=== PATIENT | female | born 2005 | race Caucasian/White ===

== ENCOUNTER 2024-09-09 16:15 | Inpatient (IN) ==
[2024-09-09] MEDS: ONDANSETRON INJ 2 MG/ML 2 ML VIAL IV STA (17:09)
[2024-09-09] MEDS: ACTIVATED CHARCOAL/SORBITOL 25 GM/120 ML TUBE PO STA (17:09)
--- NOTE | 2024-09-09 17:41 | Emergency Department Note ---
History of Present Illness General Chief complaint: Overdose (Intentional) Stated complaint: OD Time Seen by Provider: 09/09/24 16:22 History of Present Illness Provider complaint: Overdose 19-year-old female with history of anxiety and depression presents emergency department for acute overdose. Patient states she was having thoughts of wanting kill herself and tried to kill her self today by ingestion 30 tablets of 100 mg Zoloft, 10 tablets of 500 mg Tylenol, and 40 tablets of Midol. Patient states she also tried to cut her wrist. Home Medications Medication Instructions Recorded Confirmed Type drospirenone 3 mg-ethinyl 1 tab PO DAILY 09/09/24 09/09/24 History estradiol 0.03 mg tablet sertraline 100 mg tablet (Zoloft) 100 mg PO DAILY 09/09/24 09/09/24 History Allergies Allergy/AdvReac Type Severity Reaction Status Date / Time No Known Allergies Allergy Unverified 09/09/24 22:54 Past Med/Surg History Problem List (Updated 09/09/24 @ 23:04 by Jayesh Palma MD) Suicide attempt by multiple drug overdose (Acute) Medical History No pertinent family history Anxiety Depression Surgical History No pertinent past surgical history Social History Smoking Status: Never smoker Preferred Language: Thai Feels Safe at Home: Yes Gender Identity: Female Physical Exam Vital Signs Vital Signs - 24 hr 09/09/24 16:30 09/09/24 16:30 09/09/24 16:30 Temperature Temperature Source Pulse Rate Pulse Rate [Apical] Pulse Rate from SpO2 Sensor Pulse Rhythm [Apical] Pulse Strength [Apical] Respiratory Rate Respiratory Effort / Characteristics Respiratory Depth Respiratory Pattern Blood Pressure 138/82 138/82 138/82 Blood Pressure [Left Arm] Blood Pressure Mean 101 101 101 Blood Pressure Mean [Left Arm] Blood Pressure Position Blood Pressure Position [Left Arm] Pulse Oximetry Oxygen Delivery Method Sepsis Recent Fever Within 48 Hours Sepsis New/Unexplained Change in Mental Status Sepsis Action Taken by Nursing 09/09/24 16:30 09/09/24 16:31 09/09/24 16:35 Temperature 37.0 C Temperature Source Oral Pulse Rate 96 H 99 H 102 H Pulse Rate [Apical] Pulse Rate from SpO2 Sensor 98 H Pulse Rhythm [Apical] Pulse Strength [Apical] Respiratory Rate 15 13 Respiratory Effort / Characteristics Non-Labored Spontaneous Respiratory Depth Normal Respiratory Pattern Regular Blood Pressure 138/82 Blood Pressure [Left Arm] Blood Pressure Mean 100 Blood Pressure Mean [Left Arm] Blood Pressure Position Semi-fowlers Blood Pressure Position [Left Arm] Pulse Oximetry 97 98 Oxygen Delivery Method Room Air Sepsis Recent Fever Within 48 Hours No Sepsis New/Unexplained Change in Mental Status No Sepsis Action Taken by Nursing No Action Required 09/09/24 16:45 09/09/24 16:45 09/09/24 16:57 Temperature Temperature Source Pulse Rate 112 H 106 H Pulse Rate [Apical] Pulse Rate from SpO2 Sensor Pulse Rhythm [Apical] Pulse Strength [Apical] Respiratory Rate 21 23 Respiratory Effort / Characteristics Respiratory Depth Respiratory Pattern Blood Pressure 131/87 Blood Pressure [Left Arm] Blood Pressure Mean 99 Blood Pressure Mean [Left Arm] Blood Pressure Position Blood Pressure Position [Left Arm] Pulse Oximetry Oxygen Delivery Method Sepsis Recent Fever Within 48 Hours Sepsis New/Unexplained Change in Mental Status Sepsis Action Taken by Nursing 09/09/24 17:00 09/09/24 17:03 09/09/24 17:12 Temperature Temperature Source Pulse Rate 89 86 Pulse Rate [Apical] Pulse Rate from SpO2 Sensor Pulse Rhythm [Apical] Pulse Strength [Apical] Respiratory Rate 15 14 Respiratory Effort / Characteristics Respiratory Depth Respiratory Pattern Blood Pressure 135/79 Blood Pressure [Left Arm] Blood Pressure Mean 94 Blood Pressure Mean [Left Arm] Blood Pressure Position Blood Pressure Position [Left Arm] Pulse Oximetry Oxygen Delivery Method Sepsis Recent Fever Within 48 Hours Sepsis New/Unexplained Change in Mental Status Sepsis Action Taken by Nursing 09/09/24 17:15 09/09/24 17:24 09/09/24 17:36 Temperature Temperature Source Pulse Rate 83 98 H Pulse Rate [Apical] Pulse Rate from SpO2 Sensor Pulse Rhythm [Apical] Pulse Strength [Apical] Respiratory Rate 16 20 Respiratory Effort / Characteristics Respiratory Depth Respiratory Pattern Blood Pressure 134/75 Blood Pressure [Left Arm] Blood Pressure Mean 85 Blood Pressure Mean [Left Arm] Blood Pressure Position Blood Pressure Position [Left Arm] Pulse Oximetry Oxygen Delivery Method Sepsis Recent Fever Within 48 Hours Sepsis New/Unexplained Change in Mental Status Sepsis Action Taken by Nursing 09/09/24 17:42 09/09/24 17:45 09/09/24 17:45 Temperature Temperature Source Pulse Rate 108 H 101 H Pulse Rate [Apical] Pulse Rate from SpO2 Sensor Pulse Rhythm [Apical] Pulse Strength [Apical] Respiratory Rate 13 Respiratory Effort / Characteristics Respiratory Depth Respiratory Pattern Blood Pressure 142/82 H Blood Pressure [Left Arm] Blood Pressure Mean 93 Blood Pressure Mean [Left Arm] Blood Pressure Position Blood Pressure Position [Left Arm] Pulse Oximetry Oxygen Delivery Method Sepsis Recent Fever Within 48 Hours Sepsis New/Unexplained Change in Mental Status Sepsis Action Taken by Nursing 09/09/24 17:45 09/09/24 18:00 09/09/24 18:00 Temperature Temperature Source Pulse Rate Pulse Rate [Apical] Pulse Rate from SpO2 Sensor Pulse Rhythm [Apical] Pulse Strength [Apical] Respiratory Rate Respiratory Effort / Characteristics Respiratory Depth Respiratory Pattern Blood Pressure 142/82 H 119/90 119/90 Blood Pressure [Left Arm] Blood Pressure Mean 93 101 101 Blood Pressure Mean [Left Arm] Blood Pressure Position Blood Pressure Position [Left Arm] Pulse Oximetry Oxygen Delivery Method Sepsis Recent Fever Within 48 Hours Sepsis New/Unexplained Change in Mental Status Sepsis Action Taken by Nursing 09/09/24 18:00 09/09/24 18:02 09/09/24 18:09 Temperature Temperature Source Pulse Rate 103 H 118 H Pulse Rate [Apical] 110 H Pulse Rate from SpO2 Sensor Pulse Rhythm [Apical] Pulse Strength [Apical] Respiratory Rate 21 16 20 Respiratory Effort / Characteristics Respiratory Depth Respiratory Pattern Blood Pressure Blood Pressure [Left Arm] 117/82 Blood Pressure Mean Blood Pressure Mean [Left Arm] 93 Blood Pressure Position Blood Pressure Position [Left Arm] Pulse Oximetry 98 Oxygen Delivery Method Room Air Sepsis Recent Fever Within 48 Hours Sepsis New/Unexplained Change in Mental Status Sepsis Action Taken by Nursing 09/09/24 18:15 09/09/24 18:30 09/09/24 18:30 Temperature Temperature Source Pulse Rate Pulse Rate [Apical] Pulse Rate from SpO2 Sensor Pulse Rhythm [Apical] Pulse Strength [Apical] Respiratory Rate Respiratory Effort / Characteristics Respiratory Depth Respiratory Pattern Blood Pressure 139/82 117/82 117/82 Blood Pressure [Left Arm] Blood Pressure Mean 92 93 93 Blood Pressure Mean [Left Arm] Blood Pressure Position Blood Pressure Position [Left Arm] Pulse Oximetry Oxygen Delivery Method Sepsis Recent Fever Within 48 Hours Sepsis New/Unexplained Change in Mental Status Sepsis Action Taken by Nursing 09/09/24 18:30 09/09/24 18:30 09/09/24 18:30 Temperature Temperature Source Pulse Rate 111 H Pulse Rate [Apical] Pulse Rate from SpO2 Sensor Pulse Rhythm [Apical] Pulse Strength [Apical] Respiratory Rate 18 Respiratory Effort / Characteristics Respiratory Depth Respiratory Pattern Blood Pressure 117/82 117/82 Blood Pressure [Left Arm] Blood Pressure Mean 93 93 Blood Pressure Mean [Left Arm] Blood Pressure Position Blood Pressure Position [Left Arm] Pulse Oximetry Oxygen Delivery Method Sepsis Recent Fever Within 48 Hours Sepsis New/Unexplained Change in Mental Status Sepsis Action Taken by Nursing 09/09/24 18:45 09/09/24 19:00 09/09/24 19:15 Temperature Temperature Source Pulse Rate 118 H 110 H 118 H Pulse Rate [Apical] Pulse Rate from SpO2 Sensor 116 H 106 H 115 H Pulse Rhythm [Apical] Pulse Strength [Apical] Respiratory Rate 22 19 19 Respiratory Effort / Characteristics Respiratory Depth Respiratory Pattern Blood Pressure 116/85 124/90 123/73 Blood Pressure [Left Arm] Blood Pressure Mean 97 99 89 Blood Pressure Mean [Left Arm] Blood Pressure Position Blood Pressure Position [Left Arm] Pulse Oximetry 96 96 95 Oxygen Delivery Method Room Air Room Air Room Air Sepsis Recent Fever Within 48 Hours Sepsis New/Unexplained Change in Mental Status Sepsis Action Taken by Nursing 09/09/24 20:00 09/09/24 20:33 09/09/24 22:00 Temperature Temperature Source Pulse Rate 113 H Pulse Rate [Apical] 110 H 107 H Pulse Rate from SpO2 Sensor Pulse Rhythm [Apical] Regular Regular Pulse Strength [Apical] Normal Normal Respiratory Rate 20 20 Respiratory Effort / Characteristics Non-Labored Spontaneous Non-Labored Spontaneous Respiratory Depth Normal Normal Respiratory Pattern Regular Regular Blood Pressure Blood Pressure [Left Arm] 143/94 H 161/101 H Blood Pressure Mean Blood Pressure Mean [Left Arm] 110 121 Blood Pressure Position Blood Pressure Position [Left Arm] Lying Pulse Oximetry 98 97 Oxygen Delivery Method Room Air Room Air Sepsis Recent Fever Within 48 Hours Sepsis New/Unexplained Change in Mental Status Sepsis Action Taken by Nursing Physical Exam GENERAL: Patient is crying and appears upset. HENT: Exam performed. - Head: Normocephalic and atraumatic. EYES: Conjunctivae and EOM are normal. Right eye exhibits no discharge. Left eye exhibits no discharge. No scleral icterus. NECK: Normal range of motion. Neck supple. No JVD present. CV: Normal rate, regular rhythm, normal heart sounds and intact distal pulses. There is no peripheral edema. Palpable radial pulses bue. PULM/CHEST: Effort normal and breath sounds normal. No respiratory distress. No stridor. no wheezes. no rales. ABD: The abdomen is soft. There is no tenderness. NEURO: Motor and sensation grossly intact. SKIN: Abrasions to the left wrist. No active bleeding. PSYCH: Patient is crying and appears upset. Suicidal ideation. Course Course 1622: The patient was evaluated in room A6. A complete history and physical exam was performed Cardiac monitoring: An order was placed for continuous cardiac monitoring. The monitor shows a rate of 90 with sinus rhythm interpreted by me 1653: Spoke with [facility]. Both she and I are okay with waiting until 4-hour after ingestion to check labs. She did recommend activated charcoal with sorbitol. 2115: Vital signs stable. Labs show a serum Tylenol level of 58. Discussed with poison control no need for NAC. Patient medically cleared from toxicology standpoint. Patient will be assessed by mental health manager case for inpatient psychiatric admission. 2304: Patient accepted to 3 S. Administered Medications Discontinued Medications Charcoal/Sorbitol (Activated Charcoal/Sorbitol 25 Gm/120 Ml Tube) 50 gm PO NOW STA Stop: 09/09/24 16:56 Last Admin: 09/09/24 17:09 Dose: 50 gm Documented By: JASMEET Ondansetron HCl (Ondansetron Inj 2 Mg/Ml 2 Ml Vial) 4 mg IV NOW STA Stop: 09/09/24 17:04 Last Admin: 09/09/24 17:09 Dose: 4 mg Documented By: JASMEET Medical Decision Making Laboratory Data Attestation: I reviewed the patient's lab results. 09/09/24 19:30 09/09/24 19:30 Lab Results 09/09/24 09/09/24 09/09/24 Range/Units 16:21 19:30 Unknown WBC 6.48 (4.8-10.8) K/ul RBC 4.61 (4.20-5.40) M/uL Hgb 13.5 (12.0-16.0) g/dl Hct 40.4 (37.0-47.0) % MCV 87.6 (80.0-100.0) fL MCH 29.3 (25.0-34.0) pg MCHC 33.4 (32.0-36.0) g/dL RDW Std Deviation 42.3 (36.4-46.3) fL RDW Coeff of Davey 13.2 (11.5-14.5) % Plt Count 244 (130-400) K/uL MPV 10.2 (9.4-12.4) fL Immature Gran % (Auto) 0.3 % Neut % (Auto) 70.2 % Lymph % (Auto) 22.4 % [place] % (Auto) 6.0 % Eos % (Auto) 0.2 % Baso % (Auto) 0.9 % Neut # (Auto) 4.55 (1.40-6.50) K/uL Lymph # (Auto) 1.45 (1.20-3.40) K/uL [place] # (Auto) 0.39 (0.11-0.59) K/uL Eos # (Auto) 0.01 (0.00-0.50) K/uL Baso # (Auto) 0.06 (0.00-0.20) K/uL Immature Gran # (Auto) 0.02 (0.01-0.20) K/uL Sodium 139 (136-145) mmol/L Potassium 3.9 (3.5-5.1) mmol/L Chloride 107 (98-107) mmol/L Carbon Dioxide 21 (21-32) mmol/L Anion Gap 11 (3-11) BUN 15 (6-23) mg/dl Creatinine 0.72 (0.6-1.2) mg/dl Est Cr Clr Drug Dosing 137.0 ml/min eGFR 121.92 BUN/Creatinine Ratio 20.8 H (10-20) Glucose 100 H (70-99(Fasting)) mg/dl Calcium 9.3 (8.6-10.3) mg/dl Total Bilirubin 0.3 (0.2-1.0) mg/dl AST 15 (13-39) U/L ALT 14 (7-52) U/L Alkaline Phosphatase 46 (34-104) U/L Total Protein 7.9 (6.0-8.3) gm/dl Albumin 4.4 (3.4-5.0) gm/dl Globulin 3.5 (2.5-4.0) gm/dl Albumin/Globulin Ratio 1.3 (0.9-2) TSH 0.728 (0.300-4.500) uIu/ml HCG, Qual Negative (Negative) Urine Color Yellow Urine Appearance Clear (Clear) Urine pH 7.5 (4.5-7.5) Ur Specific [place] 1.023 (1.000-1.030) Urine Protein Negative (Negative) Urine Glucose (UA) Negative (Negative) Urine Ketones Negative (Negative) Urine Blood Negative (Negative) Urine Nitrite Negative (Negative) Urine Bilirubin Negative (Negative) Urine Urobilinogen Negative (Negative) Ur Leukocyte Esterase Negative (Negative) Salicylates < 3.0 L (3.0-30) mg/dl Urine Opiates Screen Neg (Neg) Ur Methadone, Qual Neg (Neg) Urine Fentanyl Screen Neg (Neg) Acetaminophen 58 H (10-30) ug/ml Urine Barbiturates Neg (Neg) Ur Phencyclidine (PCP) Neg (Neg) U Amphetamin/Meth Scrn Neg (Neg) MDMA (Ecstasy) Screen Neg (Neg) U Benzodiazepines Scrn Neg (Neg) Ur Cocaine Metabolite Neg (Neg) U Marijuana (THC) Screen Pos H (Neg) Ethyl Alcohol mg/dL < 10.0 (<10.0) mg/dl SARS-CoV-2, RNA, NAAT NEGATIVE (NEGATIVE) ECG Data Attestation: I personally reviewed and interpreted this ECG as follows: Rate (beats per minute): 91 Rhythm: + normal sinus ECG Intervals/blocks: + Normal QRS, + Normal OK and + Normal QT-c ECG ST segments: + Normal ST segments [facility] Narrative 1622: The patient was evaluated in room A6. A complete history and physical exam was performed Cardiac monitoring: An order was placed for continuous cardiac monitoring. The monitor shows a rate of 90 with sinus rhythm interpreted by me 1653: Spoke with [facility]. Both she and I are okay with waiting until 4-hour after ingestion to check labs. She did recommend activated charcoal with sorbitol. 2115: Vital signs stable. Labs show a serum Tylenol level of 58. Discussed with poison control no need for NAC. Patient medically cleared from toxicology standpoint. Patient will be assessed by mental health manager case for inpatient psychiatric admission. 2304: Patient accepted to 3 S. Impression & Plan Suicide attempt by multiple drug overdose Discharge Plan Visit Data Chief Complaint: Overdose (Intentional) Stated Complaint: OD ED Provider: Jayesh Palma Discharge Problem: Suicide attempt by multiple drug overdose Patient Disposition: Admitted As Inpatient Forms Stand Alone Forms: My [facility], Suicide Prevention Resources Prescriptions Prescriptions: No Action sertraline [Zoloft] 100 mg tablet 100 mg PO DAILY drospirenone-ethinyl estradiol 3-0.03 mg tablet 1 tab PO DAILY Referrals Referrals: PCP,NO [Primary Care Provider] -
[2024-09-09 19:46] LABS: Appearance Urine Clear (Clear); Bilirubin Urine Negative (Negative); Blood Urine Negative (Negative); Color Urine Yellow; Glucose Urine UA Negative (Negative); Ketones Urine Negative (Negative); Leukocyte Esterase Urine Negative (Negative); Nitrite Urine Negative (Negative); Protein Urine Negative (Negative); Specific Gravity Urine 1.023 (1.000-1.030); Urobilinogen Urine Negative (Negative); pH Urine 7.5 (4.5-7.5)
[2024-09-09 20:01] LABS: Basophils # (auto) 0.06 K/uL (0.00-0.20); Basophils % (auto) 0.9 %; Eosinophils # (auto) 0.01 K/uL (0.00-0.50); Eosinophils % (auto) 0.2 %; Hematocrit (blood only) 40.4 % (37.0-47.0); Hemoglobin 13.5 g/dl (12.0-16.0); Immature Granulocytes # (auto) 0.02 K/uL (0.01-0.20); Immature Granulocytes % (auto) 0.3 %; Lymphocytes # (auto) 1.45 K/uL (1.20-3.40); Lymphocytes % (auto) 22.4 %; Mean Corpuscular Hemoglobin 29.3 pg (25.0-34.0); Mean Corpuscular Hgb Conc 33.4 g/dL (32.0-36.0); Mean Corpuscular Volume 87.6 fL (80.0-100.0); Mean Platelet Volume 10.2 fL (9.4-12.4); Monocytes # (auto) 0.39 K/uL (0.11-0.59); Neutrophils # (auto) 4.55 K/uL (1.40-6.50); Neutrophils % (auto) 70.2 %; Platelet Count 244 K/uL (130-400); RDW Coefficient of Variation 13.2 % (11.5-14.5); RDW Standard Deviation 42.3 fL (36.4-46.3); Red Blood Count 4.61 M/uL (4.20-5.40); White Blood Count 6.48 K/ul (4.8-10.8)
[2024-09-09 20:13] LABS: Albumin Globulin Ratio 1.3 (0.9-2); Albumin Level 4.4 gm/dl (3.4-5.0); BUN Creatinine Ratio 20.8 (10-20); Bilirubin,Total 0.3 mg/dl (0.2-1.0); Calcium 9.3 mg/dl (8.6-10.3); Globulin 3.5 gm/dl (2.5-4.0); Potassium 3.9 mmol/L (3.5-5.1); Total Protein 7.9 gm/dl (6.0-8.3)
[2024-09-09 20:28] LABS: Thyroid Stimulating Hormone 0.728 uIu/ml (0.300-4.500)
[2024-09-09 20:53] LABS: Amphetamines+Metham, Urine Neg (Neg); Barbiturates, Urine Neg (Neg); Benzodiazepine, Urine Neg (Neg); Cocaine, Urine Neg (Neg); Fentanyl, Urine Neg (Neg); MDMA (Ecstacy), Urine Neg (Neg); Marijuana, Urine Pos (Neg); Methadone, Urine Neg (Neg); Opiate, Urine Neg (Neg); Phencyclidine, Urine Neg (Neg)
[2024-09-09 21:09] LABS: Pregnancy Test, Serum Negative (Negative)
[2024-09-09 21:11] LABS: Acetaminophen 58 ug/ml (10-30); Salicylate < 3.0 mg/dl (3.0-30)
[2024-09-09] MEDS ORDERED: SODIUM CHLORIDE 0.65% NA SOLN 45 ML (OCEAN) PRN (23:42)
[2024-09-09] MEDS ORDERED: BISMUTH SUBSALICYLATE 262 MG CHEW PO PRN (23:42)
[2024-09-09] MEDS ORDERED: MAGNESIUM HYDROXIDE SUSP 30 ML UDC PO PRN (23:42)
[2024-09-09] MEDS ORDERED: ALUMINUM/MAGNESIUM SUSP 30 ML UDC PO PRN (23:42)
--- NOTE | 2024-09-10 08:03 | History & Physical ---
Date of Service September 10, 2024 Impression / Recommendations Impression DIONNE UMANZOR is a 19-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 Diagnostically consistent with unspecified depression with differential including MDD vs BPD as well as likely JONO and possible cluster B and/or C traits. Discussed medication treatment options but will avoid starting anything today or tonight due to significant overdose of sertraline and to lessen risk for QTc changes. Overall I spent a total of 75 minutes for this admission including review of chart records, review of labwork, direct evaluation of the patient, counseling the patient, ordering medication, risk assessment, discussion with the psychiatric liason RN and documentation in the electronic health record. (1) Suicide attempt by multiple drug overdose: (2) Depression with suicidal ideation: (3) Social anxiety disorder: (4) JONO (generalized anxiety disorder): Plan 09/10/2024: The patient was admitted to the [facility] ([facility] mental health unit) on q15 min checks (behavioral with suicide precautions) for safety. The patient will participate in group, recreational, and milieu therapies and will be offered additional individual and family sessions as clinically appropriate. -Hold off on psychiatric medications for at least one more day given recent overdose -Vira BPD screen -Consider IOP for CBT/DBT skills after discharge Inventory Assets Strengths: supportive relationships, willing to get treatment Needs: safety and stabilization, medication adjustment, additional coping skills, increased outpatient services Suicide Risk Level Suicide Risk Level: High-Moderate (q15 min suicide checks) (s/p two recent suicide attempts, ongoing depression, but feels safe in the hospital and feels able to ask for support ) Risk Factors Assessment Male: No : Yes Do You Have Access To A Gun?: No Health Problems: No Mental Health Diagnoses: Yes Substance Use Disorders: No Previous Attempt: Yes Family History of Suicide: No Previous Psychiatric Hospitalization: No Hopelessness: Yes Protective Factors Assessment 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 Chief Complaint "I've been struggling for awhile now". 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 She's been struggling for the last few months but notes in the last week "it all came crashing down on me". She had no motivation, stopped going to classes in the last few days and "it was pretty impulsive and I didn't want to be here anymore". She identifies a lot of self-induced perfectionistic and pressure to do well academically so she can take care of her family and to prove her self- worth. She notes that it feels like if she's not high achieving academically then she has no self worth. When she struggles academically she then feels like her classmates and professions "must hate me" and notes that she's trying to set boundaries and take care of herself. Thinks recently she was not able to feel "these feelings" and "it kind of just all bubbled over". Feels she was driven to the point of suicide because has been feeling like "I'll never be good enough". She endorses depressive symptoms including social isolation (not talking to friends), decreased motivation (not able to go to class), helplessness (sometimes feels like "this is just the way I am, I'm bound for bad things coming my way"), hopelessness (some), decreased energy, stable appetite, and stable sleep. SI has been occurring for the last week. On 09/07/2024, she took 40 tabs of Ibuprofen, after researching for possible ways to by suicide in the few days prior. After taking it quickly called her friends who stayed with her until she felt better physically. After this she felt "a mix of being glad to be alive but also I don't know a mix of I still don't like where I'm at right now". Two days later on 09/09/2024 she then decided to take more pills around 3:30pm in the afternoon and she researched "what you need to take to overdose" and saw the midol and tylenol in the cabinet and thought mixing this with sertraline "will likely do something". After she took the medications she texted her mom and sister to tell them she loved them. Her sister called his ex- boyfriend to check on her and his father researched out to local police. Her ex- boyfriend then saw her with the pill bottles and called 911. Today she reports "I think I feel good about it" in terms of being alive. She notes she is thinking about going back to school but also scared that "things won't get better". She's glad "nothing worse happened" in thinking about her parents and friends. She also endorses symptoms of anxiety including "I'm just always anxious that e veryone hates me and self-image stuff and needing people to like me and then I get anxious about going to class". She is currently prescribed sertraline 150mg daily (has been on this for almost two years). Psychiatric ROS notable for no current nor history of symptoms of kalyn, psychosis, PTSD, OCD nor eating disorder. History of self-harm via cutting starting at age 11 but stopped in high school. Now will cut approximately once every few years. Did self-harm on 09/07/2024. Past Psychiatric History Previous Psych History: dx depression and anxiety around age [age] Current Psychiatric Diagnosis: Depression and anxiety Outpatient Services: -[facility] -therapy with Chinyere at [facility], recently switched to every other week Previous Psych Admissions: none Do You Have Access To A Gun?: No History of Previous Suicide Attempt: Yes (attempt on 09/07/2024 and 09/09/2024 via overdose) Past Medication Trials: none Past Head Trauma/Neuro History History of Concussion/Seizure: No Allergies Allergy/AdvReac Type Severity Reaction Status Date / Time No Known Allergies Allergy Unverified 09/09/24 22:54 Home Medications Medication Instructions Recorded Confirmed Type drospirenone 3 mg-ethinyl 1 tab PO DAILY 09/09/24 09/09/24 History estradiol 0.03 mg tablet sertraline 100 mg tablet (Zoloft) 150 mg PO DAILY 09/09/24 09/10/24 History Family History Family History of: Depression and Anxiety Family Mental Health History Comment: Mother (on zoloft), Sister Alcohol History Hx of Alcohol Use Over the Past 12 Months: Yes (every other weekend 3-4 drinks socially) AUDIT Total Score: 3 Smoking Use Have You Smoked or Used Tobacco Products in the Last 30 Days: No Smoking Status: Never smoker Substance History Hx of Prescription Med Misuse Over the Past 12 Months: No Hx of Over the Counter Med Misuse Over the Past 12 Months: No Hx of Inhalent Misuse Over the Past 12 Months: No Hx of Organic Substance Use Over the Past 12 Months: Yes (Recreational Marijuana) Hx of Illegal Substances/Street Drug Use Over Past 12 Months: No Problems as a Result of Past Substance Use: None Identified cannabis use maybe once a month while socializing Personal History Living Arrangements: Apartment Highest Grade Completed: College ([employer] major) Employment Status: Student Marital Status: Single Beliefs That Will Affect Care: None Current Legal Problems: No Hx Legal Problems: No Patient History Medical History No pertinent family history Anxiety Depression Surgical History No pertinent past surgical history Social History Smoking Status: Never smoker Preferred Language: Kuwaiti Communication Ability: Effective Inventory Control Clerk Required: No Beliefs That Will Affect Care: None Feels Safe at Home: Yes Gender Identity: Female Assistive Devices: None Review of Systems Review of Systems: All systems reviewed & are unremarkable except as noted in HPI & below Physical Exam Psychiatric: Orientation: alert and oriented x 3 Apperance: appropriately dressed and appropriately groomed Eye Contact: good eye contact Motor Behavior: no abnormal motor movements Speech: normal rate/rhythm/volume of speech Affect: + constricted affect Mood: + depressed mood and + anxious mood Thought Process: goal directed thought process Thought Content: reality based without delusions Suicidal Thoughts: denies suicidal thoughts (but s/p attempt), denies suicidal plan and denies suicidal intent Homicidal Thoughts: denies homicidal thoughts Hallucinations: no auditory hallucinations and no visual hallucinations Cognition: recent memory grossly intact, remote memory grossly intact, attention grossly intact and language grossly intact Estimated Intelligence: consistent with education level Insight: + fair insight Judgment: + limited judgement Vital Signs (Past 24 Hours): Last Vital Signs Temp 36.7 C 09/10/24 06:48 Pulse 86 09/10/24 06:48 Resp 16 09/10/24 06:48 BP 121/81 09/10/24 06:48 Pulse Ox 97 09/10/24 00:02 O2 Del Method Room Air 09/10/24 00:02 Exam Statement: A physical exam was performed in the ED by Dr. Palma for the purposes of medical clearance. I accept that physical as correct and adequate for the purposes of the inpatient physical exam. Results & Data ([facility]) Laboratory Results Laboratory Results - last 24 hr 09/09/24 09/09/24 09/09/24 16:21 19:30 Unknown WBC 6.48 RBC 4.61 Hgb 13.5 Hct 40.4 MCV 87.6 MCH 29.3 MCHC 33.4 RDW Std Deviation 42.3 RDW Coeff of Davey 13.2 Plt Count 244 MPV 10.2 Immature Gran % (Auto) 0.3 Neut % (Auto) 70.2 Lymph % (Auto) 22.4 [place] % (Auto) 6.0 Eos % (Auto) 0.2 Baso % (Auto) 0.9 Neut # (Auto) 4.55 Lymph # (Auto) 1.45 [place] # (Auto) 0.39 Eos # (Auto) 0.01 Baso # (Auto) 0.06 Immature Gran # (Auto) 0.02 Sodium 139 Potassium 3.9 Chloride 107 Carbon Dioxide 21 Anion Gap 11 BUN 15 Creatinine 0.72 Est Cr Clr Drug Dosing 137.0 eGFR 121.92 BUN/Creatinine Ratio 20.8 H Glucose 100 H Calcium 9.3 Total Bilirubin 0.3 AST 15 ALT 14 Alkaline Phosphatase 46 Total Protein 7.9 Albumin 4.4 Globulin 3.5 Albumin/Globulin Ratio 1.3 TSH 0.728 HCG, Qual Negative Urine Color Yellow Urine Appearance Clear Urine pH 7.5 Ur Specific [place] 1.023 Urine Protein Negative Urine Glucose (UA) Negative Urine Ketones Negative Urine Blood Negative Urine Nitrite Negative Urine Bilirubin Negative Urine Urobilinogen Negative Ur Leukocyte Esterase Negative Salicylates < 3.0 L Urine Opiates Screen Neg Ur Methadone, Qual Neg Urine Fentanyl Screen Neg Acetaminophen 58 H Urine Barbiturates Neg Ur Phencyclidine (PCP) Neg U Amphetamin/Meth Scrn Neg MDMA (Ecstasy) Screen Neg U Benzodiazepines Scrn Neg Ur Cocaine Metabolite Neg U Marijuana (THC) Screen Pos H U Marijuana THC Carboxy Pending Drug Screen Comment Pending Ethyl Alcohol mg/dL < 10.0 SARS-CoV-2, RNA, NAAT NEGATIVE Current Inpatient Medications Current Inpatient Medications: Current Inpatient Medications Al Hydrox/Mg Hydrox/Simethicone (Aluminum/Magnesium Susp 30 Ml Udc) 30 ml PO Q4H PRN PRN Reason: GI Upset Stop: 10/09/24 23:41 Bismuth Subsalicylate (Bismuth Subsalicylate 262 Mg Chew) 2 tab PO Q30M PRN PRN Reason: Loose Stool/Diarrhea Stop: 10/09/24 23:41 Magnesium Hydroxide (Magnesium Hydroxide Susp 30 Ml Udc) 30 ml PO DAILY PRN PRN Reason: Constipation Stop: 10/09/24 23:41 Sodium Chloride (Sodium Chloride 0.65% Na Soln 45 Ml (Sunol)) 1 - 2 sprays NA PRN PRN PRN Reason: Nasal Dryness/Congestion Stop: 10/09/24 23:41
--- NOTE | 2024-09-11 07:51 | Psychiatric Progress Note ---
Date of Service September 11, 2024 Impression / Recommendations Impression DIONNE UMANZOR is a 19-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 Diagnostically consistent with unspecified depression with differential including MDD vs BPD as well as likely JONO and possible cluster B and/or C traits. Discussed medication treatment options but will avoid starting anything today or tonight due to significant overdose of sertraline and to lessen risk for QTc changes. Overall I spent a total of 40 minutes for this admission including review of chart records, review of labwork, direct evaluation of the patient, counseling the patient, ordering medication, risk assessment, discussion with the psychiatric liason RN and documentation in the electronic health record. (1) Suicide attempt by multiple drug overdose: (2) Depression with suicidal ideation: (3) Social anxiety disorder: (4) JONO (generalized anxiety disorder): Plan 09/11/24: Reviewed medication options including trial of an increased dose of Zoloft (which she tolerated well without side effects), Wellbutrin (standalone or in combination with SSRI), SNRI. Encouraged coping mechanisms such as journaling, exercise, music and participation in unit activities. Continue current level of observation. 09/10/2024: The patient was admitted to the [facility] ([facility] mental health unit) on q15 min checks (behavioral with suicide precautions) for safety. The patient will participate in group, recreational, and milieu therapies and will be offered additional individual and family sessions as clinically appropriate. -Hold off on psychiatric medications for at least one more day given recent overdose -Vira BPD screen -Consider IOP for CBT/DBT skills after discharge Inventory Assets Strengths: supportive relationships, willing to get treatment Needs: safety and stabilization, medication adjustment, additional coping skills, increased outpatient services Suicide Risk Level Suicide Risk Level: High-Moderate (q15 min suicide checks) (s/p two recent suicide attempts, ongoing depression, but feels safe in the hospital and feels able to ask for support ) Risk Factors Assessment Male: No : Yes Do You Have Access To A Gun?: No Health Problems: No Mental Health Diagnoses: Yes Substance Use Disorders: No Previous Attempt: Yes Family History of Suicide: No Previous Psychiatric Hospitalization: No Hopelessness: Yes Protective Factors Assessment 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 Review of Systems Sleep Information Total Hours of Sleep: 6 Meal Information Percent Meal Consumed - Breakfast: 100 Percent Meal Consumed - Lunch: 100 Percent Meal Consumed - Dinner: 90 Subjective Subjective Patient was seen & assessed and interval progress reviewed with nursing and social work. 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 This was preceded by an overdose on 40 Ibuprofen 2 days prior. She endorses a history of depression and anxiety dating back to age 11. Anxiety is free floating and generalized. She [facility] and has been prescribed Zoloft 150mg daily along with alternative weekly therapy over the past year. She notes increasing difficulty keeping up with classes, has been late several times and not getting her assignments done since August. She also broke up with her boyfriend of 4 years as she felt a need to take care of herself. At this time she continues to endorse depressive symptoms, anxiety over missing class, and anxious ruminations about her siblings' detention financial security, which she feels responsible for. She denied suicidal ideation, intent or plan at this time. Denied physical symptoms at this time. Physical Exam Psychiatric Orientation: alert and oriented x 3 Apperance: appropriately dressed and appropriately groomed Eye Contact: good eye contact (tearful) Motor Behavior: no abnormal motor movements Speech: normal rate/rhythm/volume of speech Affect: + depressed affect, + anxious affect and + constricted affect Mood: + depressed mood and + anxious mood Thought Process: goal directed thought process Thought Content: reality based without delusions Suicidal Thoughts: denies suicidal thoughts (but s/p attempt), denies suicidal plan and denies suicidal intent Homicidal Thoughts: denies homicidal thoughts Hallucinations: no auditory hallucinations and no visual hallucinations Cognition: recent memory grossly intact, remote memory grossly intact, attention grossly intact and language grossly intact Estimated Intelligence: consistent with education level Insight: + fair insight Judgment: + limited judgement and + fair judgement Vital Signs (Past 24 Hours) Last Vital Signs Temp 36.4 C L 09/11/24 06:35 Pulse 102 H 09/11/24 06:36 Resp 16 09/11/24 06:35 BP 113/76 09/11/24 06:36 Pulse Ox 97 09/10/24 00:02 O2 Del Method Room Air 09/10/24 00:02 Results & Data ([facility]) Current Inpatient Medications Current Inpatient Medications: Current Inpatient Medications Al Hydrox/Mg Hydrox/Simethicone (Aluminum/Magnesium Susp 30 Ml Udc) 30 ml PO Q4H PRN PRN Reason: GI Upset Stop: 10/09/24 23:41 Bismuth Subsalicylate (Bismuth Subsalicylate 262 Mg Chew) 2 tab PO Q30M PRN PRN Reason: Loose Stool/Diarrhea Stop: 10/09/24 23:41 Magnesium Hydroxide (Magnesium Hydroxide Susp 30 Ml Udc) 30 ml PO DAILY PRN PRN Reason: Constipation Stop: 10/09/24 23:41 Miscellaneous (Drospirenone-Ethinyl Estradiol 3-0.03 Mg Tablet~Order Awaiting Action) 1 each N/A DAILY SVETLANA Stop: 10/11/24 08:59 Sodium Chloride (Sodium Chloride 0.65% Na Soln 45 Ml ([place]ayer)) 1 - 2 sprays NA PRN PRN PRN Reason: Nasal Dryness/Congestion Stop: 10/09/24 23:41 Mental Health & Subst Abuse Tx Psychiatrist Name of Psychiatrist: Breonna Li Psychiatrist's Date Of Appointment With Psychiatric Provider: 09/20/24 Time of Appointment with Psychiatrist: 14:20 Psychiatric Appointment Comment: Please arrive 15 minutes early for appointment Therapist Name of Therapist: Chinyere holcomb [facility] The[facility]'s Date of Therapist Appointment: 09/21/24 Time of Therapist Appointment: 9 AM Therapy Appointment Comment: Cancelled therapy appointment for 09/13/24 @ 9AM. Therapist Release of Information: Obtained Health Counselor Name of Health Counselor: n/a Post Discharge Appointments Primary Care Physician Name Of Family Doctor/PCP: No PCP (1) Suicide attempt by multiple drug overdose Encounter type: subsequent encounter Qualified Code(s): T50.912D - Poisoning by multiple unspecified drugs, medicaments and biological substances, intentional self-harm, subsequent encounter
[2024-09-11] MEDS: PATIENT'S OWN ORAL CONTRACEPTIVE PO SCH (21:31)
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
[2024-09-12] MEDS: SERTRALINE HCL 50 MG TABLET PO SCH (14:44)
[2024-09-12 15:26] LABS: Marijuana Quant, GCMS Urine 62 ng/mL (<5)
[2024-09-12] MEDS ORDERED: SERTRALINE HCL 50 MG TABLET PO SCH (22:00)
--- NOTE | 2024-09-13 11:27 | Psychiatric Progress Note ---
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 Diagnostically consistent with unspecified depression with differential including MDD vs BPD as well as likely JONO. Cluster B traits remain a consideration. Possibility of ADHD was discussed also. She displays limited insight into the seriousness of her suicide attempts and requested to be discharged as soon as possible, citing her desire to be with her friends and cat and not falling behind in class as her primary motivations. Discussed medication treatment options in detail. Patient would like to start and consented to augmentation of sertraline with Buproprion. Discussed risks, benefits and alternatives and side effects, including nausea, headaches, jitteriness, irritability and tremors. No documented history of anorexia or bulimia. No prior history of seizures or head trauma. Overall I spent a total of 30 minutes with this patient including review of chart records, review of labwork, direct evaluation of the patient, counseling the patient, ordering medication, risk assessment, discussion with the psychiatric liason RN and documentation in the electronic health record. (1) Suicide attempt by multiple drug overdose: (2) Depression with suicidal ideation: (3) Social anxiety disorder: (4) JONO (generalized anxiety disorder): Plan 09/13/24: Increase Sertraline to 100mg daily Add Wellbutrin XL 150mg daily. ELOS 3 days. 09/12/24: Restart Zoloft 50mg daily today with a plan to increase over the next few days. Encouraged participation in unit activities. May benefit from DBT. Encouraged her to engage with the treatment process. 09/11/24: Reviewed medication options including trial of an increased dose of Zoloft (which she tolerated well without side effects), Wellbutrin (standalone or in combination with SSRI), SNRI. Encouraged coping mechanisms such as journaling, exercise, music and participation in unit activities. Continue current level of observation. 09/10/2024: The patient was admitted to the [facility] ([facility] mental health unit) on q15 min checks (behavioral with suicide precautions) for safety. The patient will participate in group, recreational, and milieu therapies and will be offered additional individual and family sessions as clinically appropriate. -Hold off on psychiatric medications for at least one more day given recent ove rdose -Vira BPD screen -Consider IOP for CBT/DBT skills after discharge Inventory Assets Strengths: supportive relationships, willing to get treatment Needs: safety and stabilization, medication adjustment, additional coping skills, increased outpatient services Suicide Risk Level Suicide Risk Level: Low (q15 min observation checks) Risk Factors Assessment Male: No : Yes Do You Have Access To A Gun?: No Health Problems: No Mental Health Diagnoses: Yes Substance Use Disorders: No Previous Attempt: Yes Family History of Suicide: No Previous Psychiatric Hospitalization: No Hopelessness: Yes Protective Factors Assessment 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 Chief Complaint "I feel better today". Review of Systems Sleep Information Total Hours of Sleep: 6 Meal Information Percent Meal Consumed - Breakfast: 100 Percent Meal Consumed - Lunch: 90 Percent Meal Consumed - Dinner: 100 Subjective Subjective Patient was seen & assessed and interval progress reviewed with treatment team. She feels comfortable and safe on the unit but is anxious about falling behind academically especially as she is already going to graduate a year behind schedule. She admitted to procrastinating due to a need for perfection/order, which causes her to fall behind. She reports difficulty sitting down to get work done (since brad year of high school). Denied a family history of ADHD. Denied SI intent or plan at this time. Physical Exam Psychiatric Orientation: alert and oriented x 3 Apperance: appropriately dressed and appropriately groomed Eye Contact: good eye contact (tearful) Motor Behavior: no abnormal motor movements Speech: normal rate/rhythm/volume of speech Affect: + anxious affect and + tearful affect Mood: + anxious mood and + dysphoric mood Thought Process: goal directed thought process Thought Content: reality based without delusions Suicidal Thoughts: denies suicidal thoughts (but s/p attempt), denies suicidal plan and denies suicidal intent Homicidal Thoughts: denies homicidal thoughts Hallucinations: no auditory hallucinations and no visual hallucinations Cognition: recent memory grossly intact, remote memory grossly intact, attention grossly intact and language grossly intact Estimated Intelligence: consistent with education level Insight: + fair insight Judgment: + limited judgement and + fair judgement Vital Signs (Past 24 Hours) Last Vital Signs Temp 36.7 C 09/13/24 06:39 Pulse 73 09/13/24 06:40 Resp 16 09/13/24 06:39 BP 93/63 L 09/13/24 06:40 Pulse Ox 97 09/10/24 00:02 O2 Del Method Room Air 09/10/24 00:02 Results & Data ([facility]) Laboratory Results Laboratory Results - last 24 hr 09/09/24 16:21 U Marijuana THC Carboxy 62 H Drug Screen Comment SEE NOTE Current Inpatient Medications Current Inpatient Medications: Current Inpatient Medications Al Hydrox/Mg Hydrox/Simethicone (Aluminum/Magnesium Susp 30 Ml Udc) 30 ml PO Q4H PRN PRN Reason: GI Upset Stop: 10/09/24 23:41 Bismuth Subsalicylate (Bismuth Subsalicylate 262 Mg Chew) 2 tab PO Q30M PRN PRN Reason: Loose Stool/Diarrhea Stop: 10/09/24 23:41 Magnesium Hydroxide (Magnesium Hydroxide Susp 30 Ml Udc) 30 ml PO DAILY PRN PRN Reason: Constipation Stop: 10/09/24 23:41 Miscellaneous (Patient's Own Oral Contraceptive) 1 each PO DAILY SVETLANA Stop: 10/11/24 13:59 Last Admin: 09/13/24 09:13 Dose: 1 each Sertraline HCl (Sertraline Hcl 50 Mg Tablet) 50 mg PO QAM SVETLANA Stop: 10/12/24 14:14 Last Admin: 09/13/24 09:12 Dose: 50 mg Sodium Chloride (Sodium Chloride 0.65% Na Soln 45 Ml ([place])) 1 - 2 sprays NA PRN PRN PRN Reason: Nasal Dryness/Congestion Stop: 10/09/24 23:41 Mental Health & Subst Abuse Tx Psychiatrist Name of Psychiatrist: Breonna Li Psychiatrist's Date Of Appointment With Psychiatric Provider: 09/20/24 Time of Appointment with Psychiatrist: 14:20 Psychiatric Appointment Comment: Please arrive 15 minutes early for appointment Therapist Name of Therapist: Chinyere holcomb [facility]- [facility] Counseling Therapist's Date of Therapist Appointment: 09/21/24 Time of Therapist Appointment: 9 AM Therapy Appointment Comment: Cancelled therapy appointment for 09/13/24 @ 9AM. Therapist Release of Information: Obtained Senior Product Marketing Manager Name of Senior Product Marketing Manager: n/a Post Discharge Appointments Primary Care Physician Name Of Family Doctor/PCP: No PCP (1) Suicide attempt by multiple drug overdose Encounter type: subsequent encounter Qualified Code(s): T50.912D - Poisoning by multiple unspecified drugs, medicaments and biological substances, intentional self-harm, subsequent encounter
[2024-09-14] MEDS: buPROPion XL 150 MG TABCR PO SCH (08:33)
[2024-09-14] MEDS: SERTRALINE HCL 100 MG TABLET PO SCH (08:34)
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
--- NOTE | 2024-09-15 09:37 | Discharge Summary ---
Date of Service September 15, 2024 History of Present Illness She presents for psychiatric admission for worsening depression and after suicide attempt via polypharmacy overdose of 30 tabs of sertraline 100mg daily, half-bottle of midol and then about 6 tabs extra strength tylenol in the context of multiple psychosocial stressors including family stressors, recent breakup of half-way relationship and academic difficulty. She's been struggling for the last few months but notes in the last week "it all came crashing down on me". She had no motivation, stopped going to classes in the last few days and "it was pretty impulsive and I didn't want to be here anymore". She identifies a lot of self-induced perfectionistic and pressure to do well academically so she can take care of her family and to prove her self- worth. She notes that it feels like if she's not high achieving academically then she has no self worth. When she struggles academically she then feels like her classmates and professions "must hate me" and notes that she's trying to set boundaries and take care of herself. Thinks recently she was not able to feel "these feelings" and "it kind of just all bubbled over". Feels she was driven to the point of suicide because has been feeling like "I'll never be good enough". She endorses depressive symptoms including social isolation (not talking to friends), decreased motivation (not able to go to class), helplessness (sometimes feels like "this is just the way I am, I'm bound for bad things coming my way"), hopelessness (some), decreased energy, stable appetite, and stable sleep. SI has been occurring for the last week. On 09/07/2024, she took 40 tabs of Ibuprofen, after researching for possible ways to by suicide in the few days prior. After taking it quickly called her friends who stayed with her until she felt better physically. After this she felt "a mix of being glad to be alive but also I don't know a mix of I still don't like where I'm at right now". Two days later on 09/09/2024 she then decided to take more pills around 3:30pm in the afternoon and she researched "what you need to take to overdose" and saw the midol and tylenol in the cabinet and thought mixing this with sertraline "will likely do something". After she took the medications she texted her mom and sister to tell them she loved them. Her sister called his ex- boyfriend to check on her and his father researched out to local police. Her ex- boyfriend then saw her with the pill bottles and called 911. Today she reports "I think I feel good about it" in terms of being alive. She notes she is thinking about going back to school but also scared that "things won't get better". She's glad "nothing worse happened" in thinking about her parents and friends. She also endorses symptoms of anxiety including "I'm just always anxious that everyone hates me and self-image stuff and needing people to like me and then I get anxious about going to class". She is currently prescribed sertraline 150mg daily (has been on this for almost two years). Psychiatric ROS notable for no current nor history of symptoms of kalyn, psychosis, PTSD, OCD nor eating disorder. History of self-harm via cutting starting at age 11 but stopped in high school. Now will cut approximately once every few years. Did self-harm on 09/07/2024. Physical Exam Vital Signs (Past 24 Hours) Last Vital Signs Temp 36.8 C 09/15/24 06:25 Pulse 93 H 09/15/24 06:26 Resp 16 09/15/24 06:25 BP 104/68 09/15/24 06:26 Pulse Ox 97 09/10/24 00:02 O2 Del Method Room Air 09/10/24 00:02 Principal Diagnosis Major Depressive Disorder recurrent, severe without psychosis. Cluster B Personality traits. Psychiatric Data See daily stay summary. In short, safety was maintained and the patient was cooperative with care. Medication changes included restarting Zoloft and titrating thedose to 100mg daily, adding Wellbutrin XL 150mg daily for augmentation. Pt tolerated this well. A family session was held and safety plan was completed prior to discharge. Day of Discharge Assessment Today the patient voices readiness for discharge. They note improvement in mood and deny thoughts to harm self or others. Thoughts remain organized and they are improved from admission. There is no evidence of psychosis. They agree to take mediations as prescribed and keep follow-up appointments. They are stable for discharge to outpatient level of care. Transition of Care Transition Of Care Record: was reviewed with the patient Advance Directives Advance Directives Information Provided: No Advance Directives: No Mental Health Advance Directive: No Advance Directives on File: No Living Will: No Power of Chief Controller Station: No Advance Directives Reason:: Declines as Mental Health Visit. 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) Stable Relationships: Yes Supportive Family: Yes Discharge Data Lab Results 09/09/24 09/09/24 09/09/24 16:21 19:30 Unknown WBC 6.48 RBC 4.61 Hgb 13.5 Hct 40.4 MCV 87.6 MCH 29.3 MCHC 33.4 RDW Std Deviation 42.3 RDW Coeff of Davey 13.2 Plt Count 244 MPV 10.2 Immature Gran % (Auto) 0.3 Neut % (Auto) 70.2 Lymph % (Auto) 22.4 Edwards % (Auto) 6.0 Eos % (Auto) 0.2 Baso % (Auto) 0.9 Neut # (Auto) 4.55 Lymph # (Auto) 1.45 Edwards # (Auto) 0.39 Eos # (Auto) 0.01 Baso # (Auto) 0.06 Immature Gran # (Auto) 0.02 Sodium 139 Potassium 3.9 Chloride 107 Carbon Dioxide 21 Anion Gap 11 BUN 15 Creatinine 0.72 Est Cr Clr Drug Dosing 137.0 eGFR 121.92 BUN/Creatinine Ratio 20.8 H Glucose 100 H Calcium 9.3 Total Bilirubin 0.3 AST 15 ALT 14 Alkaline Phosphatase 46 Total Protein 7.9 Albumin 4.4 Globulin 3.5 Albumin/Globulin Ratio 1.3 TSH 0.728 HCG, Qual Negative Urine Color Yellow Urine Appearance Clear Urine pH 7.5 Ur Specific Hampton 1.023 Urine Protein Negative Urine Glucose (UA) Negative Urine Ketones Negative Urine Blood Negative Urine Nitrite Negative Urine Bilirubin Negative Urine Urobilinogen Negative Ur Leukocyte Esterase Negative Salicylates < 3.0 L Urine Opiates Screen Neg Ur Methadone, Qual Neg Urine Fentanyl Screen Neg Acetaminophen 58 H Urine Barbiturates Neg Ur Phencyclidine (PCP) Neg U Amphetamin/Meth Scrn Neg MDMA (Ecstasy) Screen Neg U Benzodiazepines Scrn Neg Ur Cocaine Metabolite Neg U Marijuana (THC) Screen Pos H U Marijuana THC Carboxy 62 H Drug Screen Comment SEE NOTE Ethyl Alcohol mg/dL < 10.0 SARS-CoV-2, RNA, NAAT NEGATIVE Hospital Course (1) Suicide attempt by multiple drug overdose: (2) Depression with suicidal ideation: (3) Social anxiety disorder: (4) JONO (generalized anxiety disorder): Plan 09/14/24: Continue current medication. Prepare for discharge tomorrow. Recommend DBT. 09/13/24: Increase Sertraline to 100mg daily Add Wellbutrin XL 150mg daily. ELOS 3 days. 09/12/24: Restart Zoloft 50mg daily today with a plan to increase over the next few days. Encouraged participation in unit activities. May benefit from DBT. Encouraged her to engage with the treatment process. 09/11/24: Reviewed medication options including trial of an increased dose of Zoloft (which she tolerated well without side effects), Wellbutrin (standalone or in combination with SSRI), SNRI. Encouraged coping mechanisms such as journaling, exercise, music and participation in unit activities. Continue current level of observation. 09/10/2024: The patient was [facility]) on q15 min checks (behavioral with suicide precautions) for safety. The patient will participate in group, recreational, and milieu therapies and will be offered additional individual and family sessions as clinically appropriate. -Hold off on psychiatric medications for at least one more day given recent overdose -Vira BPD screen -Consider IOP for CBT/DBT skills after discharge Mental Health & Subst Abuse Tx Psychiatrist Name of Psychiatrist: Breonna Li Psychiatrist's Date Of Appointment With Psychiatric Provider: 09/20/24 Time of Appointment with Psychiatrist: 14:20 Psychiatric Appointment Comment: Please arrive 15 minutes early for appointment Therapist Name of Therapist: Chinyere Neil at [facility] Date of Therapist Appointment: 09/21/24 Time of Therapist Appointment: 9 AM Therapy Appointment Comment: Cancelled therapy appointment for 09/13/24 @ 9AM. Therapist Release of Information: Obtained Home Economics Extension Worker Name of Home Economics Extension Worker: n/a Post Discharge Appointments Primary Care Physician Name Of Family Doctor/PCP: No PCP Discharge Plan Discharge Items Patient Disposition: Home - Self-Care Reason For Visit: MDD Discharge Diagnosis: Major Depressive Disorder Recurrent, Severe, without Psychosis. Cluster B personality traits. r/o ADHD. Condition on Discharge: Good Health Concerns: No chronic medical problems, allergies, prior head trauma or seizures. Activity: Resume your previous activity Lifting: Gradually increase as tolerated Bathing: No limitations Sexual Activity: When tolerated Exercise/Sports: As tolerated Driving/Machine Use: No limitations Weightbearing: Full weightbearing Non-emergency contact: Primary Care Provider, Psychiatrist and Therapist Call non-emergency contact if: you have any medication questions and your symptoms worsen Follow-up/Referrals: PCP,NO [Primary Care Provider] - Diet: Regular Addtl Attending Provider Instructions: If in Crisis, call [phone] or return to the ED. Continue medication. Keep aftercare appointments. Pending Studies at Discharge: No Stand-Alone Forms: My [employer], Smoking Cessation Medications and DC Order Prescriptions: New bupropion HCl 150 mg Tablet Extended Release 24 Hr 150 mg PO QAM 30 Days Qty: 30 0RF Continued sertraline [Zoloft] 100 mg tablet 150 mg PO DAILY drospirenone-ethinyl estradiol 3-0.03 mg tablet 1 tab PO DAILY Discharge Orders: Discharge Order (Routine); Ordered 09/15/24 Ordered By: Sai Bullard/Other Patient Handouts: Depression: Tips to Help Yourself, Suicide Warning What To Do, Spotting Suicide Warning Signs, JONO Admission Data Admit Date/Time: 09/09/24 23:24 Attending Provider: Yudelka Laughlin Admit Provider: Yudelka Laughlin Primary Care Provider: PCPDAHIANA Coding Level of Care Code 91098 D/C day mgmt > 30 min Diagnoses Suicide attempt by multiple drug overdose, subsequent encounter T50.912D Encounter type: subsequent encounter Depression with suicidal ideation F32.A; R45.851 Social anxiety disorder F40.10 JONO (generalized anxiety disorder) F41.1
== END 2024-09-15 10:35 | disposition home or self-care (01) | DRG 885 ==
LOC: ED 16:15 → 3S 23:14